=== PATIENT | female | born 1950 | race Caucasian/White ===

== ENCOUNTER → 2017-09-01 | Outpatient (CLI) | payer MEDICARE, BC ==
--- NOTE | 2017-09-01 11:37 | REPMRS ---
Patient History The patient states she had a clinical breast exam in 08/2017. Patient is postmenopausal. Family history of breast cancer in mother at age 50 or over. Benign excisional biopsy of the right breast. Benign stereotatic breast biopsy of the left breast. Took hormonal contraceptives for 6 months. Digital Woman Screen Mammo: September 01, 2017 - Exam #: [id number] Bilateral CC and MLO view(s) were taken. Technologist: Gita Dang, Technologist Prior study comparison: July 15, 2016, digital woman screen mammo performed at [facility] [employer] [facility]. October 31, 2014, digital woman screen mammo performed at [facility] [employer]. FINDINGS: There are scattered fibroglandular densities. There has been no change in the appearance of the mammogram from the prior studies. There is a mild amount of residual fibroglandular tissue which is fairly symmetric. There is no interval development of dominant mass, architectural distortion, or clustered microcalcification suggestive of malignancy. ASSESSMENT: BI-RADS/ACR category 1 mammogram. Negative. Recommendation Routine screening mammogram in 1 year (for women over age 40). This mammogram was interpreted with the aid of an FDA-approved computer-aided dectection system. Electronically Signed By: Rohit Cowart MD 09/01/17 [id number]
== END ==
LOC: M WHC 10:06
PROVIDERS: ATTEND Nurse Practitioner Women's Health
DX: Z01.419 Encounter for gynecological examination (general) (routine) without abnormal findings (principal); Z12.31 Encounter for screening mammogram for malignant neoplasm of breast; Z78.0 Asymptomatic menopausal state; Z12.12 Encounter for screening for malignant neoplasm of rectum; Z80.3 Family history of malignant neoplasm of breast; Z92.89 Personal history of other medical treatment; Z92.0 Personal history of contraception
CPT/HCPCS: 82270; G0101; G0202

== ENCOUNTER → 2018-09-08 | Outpatient (CLI) | payer MEDICARE, BC | LOC: M WHC 10:37 | DX: Z01.419 Encounter for gynecological examination (general) (routine) without abnormal findings (principal); Z12.31 Encounter for screening mammogram for malignant neoplasm of breast (principal); Z80.3 Family history of malignant neoplasm of breast; Z98.890 Other specified postprocedural states; Z92.29 Personal history of other drug therapy | CPT/HCPCS: 77067 ==

== ENCOUNTER → 2019-09-09 | Outpatient (CLI) | payer MEDICARE, BC ==
--- NOTE | 2019-09-09 11:27 | REPMRS ---
Patient History The patient states she has not had a clinical breast exam in over a year. Family history of breast cancer at age 87 in mother. Benign excisional biopsy of the right breast. Benign stereotatic breast biopsy of the left breast. Took hormonal contraceptives for 6 months. 3D TOMOSYNTHESIS WAS PERFORMED. [facility] lifetime risk for breast cancer is 8.4%. Digital Woman Screen Mammo: September 09, 2019 - Exam #: [id number] Bilateral CC and MLO view(s) were taken. Technologist: Samanta Danielson, Technologist Prior study comparison: September 08, 2018, bilateral digital woman screen mammo performed at [facility]. September 01, 2017, digital woman screen mammo performed at [facility]. FINDINGS: The breast tissue is heterogeneously dense. This may lower the sensitivity of mammography. There has been no change in the appearance of the mammogram from the prior studies. There is a moderate amount of residual fibroglandular tissue which is fairly symmetric. There is no interval development of dominant mass, areas of architectural distortion, or clustered microcalcification typical of malignancy. Assessment: BI-RADS/ACR category 1 mammogram. Negative Mammogram. Recommendation Routine screening mammogram in 1 year (for women over age 40). This mammogram was interpreted with the aid of an FDA-approved computer-aided dectection system. Electronically Signed By: Rohit Cowart MD 09/09/19 [id number]
== END ==
LOC: M WHC 10:25
PROVIDERS: ATTEND Nurse Practitioner Women's Health
DX: Z12.31 Encounter for screening mammogram for malignant neoplasm of breast (principal)

== ENCOUNTER → 2020-09-18 | Outpatient (CLI) | payer MEDICARE, BC ==
--- NOTE | 2020-09-18 12:21 | REPMRS ---
Patient History The patient states she had a clinical breast exam in 09/2020 Family history of breast cancer at age 87 in mother. Benign excisional biopsy of the right breast. Benign stereotatic breast biopsy of the left breast. Took hormonal contraceptives for 6 months. Digital Woman Screen Mammo: September 18, 2020 - Exam #: [id number] Bilateral CC and MLO view(s) were taken. Technologist: Samanta Danielson, Technologist Prior study comparison: September 09, 2019, bilateral digital woman screen mammo performed at [facility]. September 08, 2018, bilateral digital woman screen mammo performed at [facility]. September 01, 2017, digital woman screen mammo performed at [facility]. FINDINGS: There are scattered fibroglandular densities. The Volpara volumetric breast density category is:B. There are 2 needle biopsy marker clips in the left breast. There has been no change in the appearance of the mammogram from the prior studies. There is a mild amount of scattered fibroglandular density which is fairly symmetric. There is no interval development of dominant mass, architectural distortion, or grouped microcalcification suggestive of malignancy. 3-D tomosynthesis shows no additional findings. Assessment: BI-RADS/ACR category 2 mammogram. Benign Findings. Recommendation Routine screening mammogram of both breasts in 1 year (for women over age 40). This patient's Lifetime Breast Cancer Risk is estimated at 8.0 %. This mammogram was interpreted with the aid of an FDA-approved computer-aided dectection system. Electronically Signed By: Dragan Gray MD 09/18/20 [id number]
--- NOTE | 2020-09-18 13:44 | DEXA ---
INDICATION: M85.80 OSTEOPENIA AFTER MENOPAUSE. COMPARISON: September 03, 2017, July 17, 2010, and June 30, 2008.. TECHNIQUE: Bone density was measured using dual-energy x-ray absorptionmetry (DEXA). FINDINGS: AP SPINE L1-L4 BMD 1.106 g/cm2 Young Adult T-Score -0.6 Age Matched Z-Score 1.0. LT FEMUR, TOTAL BMD 0.716 g/cm2 Young Adult T-Score -2.3 Age Matched Z-Score -0.9. LT NECK BMD 0.759 g/cm2 Young Adult T-Score -2.0 Age Matched Z-Score -0.4. RT FEMUR, TOTAL BMD 0.765 g/cm2 Young Adult T-Score -1.9 Age Matched Z-Score -0.5. RT NECK BMD 0.772 g/cm2 Young Adult T-Score -1.9 Age Matched Z-Score -0.3. IMPRESSION: There is normal bone density of the spine. There is low bone density of the left hip. There is low bone density of the right hip. The density of the spine has decreased 11.0% since the initial exam on January 23, 2004. The density of the spine increased 0.5% since most recent exam on September 03, 2017. The density of the left hip has decreased 13.7% since initial exam on January 23, 2004. The density of the left hip has decreased 4.7% since most recent exam on September 03, 2017. The density of the right hip has decreased 9.5% since the initial exam on January 23, 2004. The density of the right hip has decreased 1.7% since the most recent exam on September 03, 2017. FOLLOW-UP: Recommendation for the next bone density exam: 2 years. <Electronically signed by Dragan Gray > 09/18/20 [id number]
== END ==
LOC: M WHC 10:47
PROVIDERS: ATTEND Nurse Practitioner Women's Health
DX: Z01.419 Encounter for gynecological examination (general) (routine) without abnormal findings (principal); Z12.31 Encounter for screening mammogram for malignant neoplasm of breast; Z78.0 Asymptomatic menopausal state; M85.80 Other specified disorders of bone density and structure, unspecified site; Z80.3 Family history of malignant neoplasm of breast; Z86.018 Personal history of other benign neoplasm; Z92.0 Personal history of contraception
CPT/HCPCS: 77063; 77067; 77080; G0101

== ENCOUNTER → 2021-10-23 | Outpatient (CLI) | payer MEDICARE, BC ==
--- NOTE | 2021-10-23 15:11 | REPMRS ---
Patient History The patient states she has not had a clinical breast exam in over a year. Patient is postmenopausal. Family history of breast cancer at age 87 in mother. Benign excisional biopsy of the right breast. Benign stereotatic breast biopsy of the left breast. Took hormonal contraceptives for 6 months. Moderna vaccine 12/14/20 left arm. 01/14/21 left arm. 09/15/21 left arm. Patient states no breast complaints today. Patient has signed MRS History Sheet. Digital Woman Screen Mammo: October 23, 2021 - Exam #: [id number] Bilateral CC and MLO view(s) were taken. Technologist: RT Asa Prior study comparison: September 18, 2020, bilateral digital woman screen mammo performed at [facility]. September 09, 2019, bilateral digital woman screen mammo performed at [facility]. FINDINGS: There are scattered fibroglandular densities. Screening. Digital screening (2D) mammography was performed bilaterally in the CC and MLO projections. Additionally, breast tomosynthesis (3D mammography) was performed bilaterally in the CC and MLO projections. Todays exam was compared to the prior exam/exams. By history, the patient has no complaints of a palpable breast abnormality or other significant breast complaints. The breasts are unchanged in size and shape. There are no diana-soft tissue densities or spiculated masses. There is no internal architectural distortion. There are no suspicious diana-calcific clusters. Skin thickening or nipple retraction is not present. IMPRESSION: BI-RADS Category 2- Benign Findings. There is no evidence of malignant alteration of the breasts. Followup examination recommended in one year. The Volpara volumetric breast density category is B, there are scattered areas of fibroglandular densities. This mammogram was read with the assistance of [employer],an FDA approved computer aided detection system for mammography. The lifetime Tyrer-Cuzick score is 7.5 % Negative x-ray reports should not delay surgical consultation if a dominant or clinically suspicious mass is present. Not all breast cancers can be identified by mammography. Therefore, we recommend that you continue to perform regular breast self-examination and physical examination and then promptly contact your physician of any concerns or changes. Adenosis and dense breasts may obscure an underlying neoplasm. Assessment: BI-RADS/ACR category 2 mammogram. Benign Findings. Recommendation Routine screening mammogram of both breasts in 1 year. Electronically Signed By: Samuel Chen DO 10/23/21 [id number]
== END ==
LOC: M WHC 13:06
PROVIDERS: ATTEND Nurse Practitioner Women's Health
DX: Z12.31 Encounter for screening mammogram for malignant neoplasm of breast (principal); Z78.0 Asymptomatic menopausal state; Z80.3 Family history of malignant neoplasm of breast

== ENCOUNTER → 2022-05-19 | Outpatient (CLI) | payer MEDICARE, BC, OTHER ==
[~2022-05-19] MED LIST: ERGO500029 PO; LISI10TA22 PO
== END ==
LOC: M LABSMTC 09:46
PROVIDERS: ATTEND Anesthesiology
DX: Z20.828 Contact with and (suspected) exposure to other viral communicable diseases (principal); Z11.59 Encounter for screening for other viral diseases

== ENCOUNTER 2022-05-22 10:40 | Day surgery (SDC) | payer MEDICARE, BC, OTHER ==
[~2022-05-22] VITALS: Ht 170.2 cm; Wt 73.0 kg
[~2022-05-22 10:40] MED LIST changes: +NS 1,000 ML IV ONE
[2022-05-22 13:15] VITALS: BP 150/72
== END 2022-05-22 13:20 | disposition home or self-care (01) ==
LOC: M OPP 10:40
PROVIDERS: ATTEND Surgery
DX: Z12.11 Encounter for screening for malignant neoplasm of colon (principal); Z80.0 Family history of malignant neoplasm of digestive organs; D12.2 Benign neoplasm of ascending colon; K57.30 Diverticulosis of large intestine without perforation or abscess without bleeding; I10 Essential (primary) hypertension; Z79.51 Long term (current) use of inhaled steroids; Z79.899 Other long term (current) drug therapy; Z80.1 Family history of malignant neoplasm of trachea, bronchus and lung

== ENCOUNTER → 2022-11-07 | Outpatient (CLI) | payer MEDICARE, BC, OTHER ==
[~2022-11-07] MED LIST changes: -NS 1,000 ML IV ONE
== END ==
LOC: M WHC 08:38
PROVIDERS: ATTEND Family Medicine
DX: Z12.31 Encounter for screening mammogram for malignant neoplasm of breast (principal); Z13.220 Encounter for screening for lipoid disorders; M85.89 Other specified disorders of bone density and structure, multiple sites

== ENCOUNTER → 2022-11-25 | Outpatient (CLI) | payer MEDICARE, BC, OTHER | LOC: M WHC 08:28 | PROVIDERS: ATTEND Family Medicine | DX: R92.8 Other abnormal and inconclusive findings on diagnostic imaging of breast (principal); N63.10 Unspecified lump in the right breast, unspecified quadrant | CPT/HCPCS: 77065; G0279 ==

== ENCOUNTER → 2023-11-27 | Outpatient (CLI) | payer MEDICARE, BC, OTHER | LOC: M WHC 08:47 | PROVIDERS: ATTEND Family Medicine | DX: Z12.31 Encounter for screening mammogram for malignant neoplasm of breast (principal) ==

== ENCOUNTER → 2024-12-09 | Outpatient (CLI) | payer MEDICARE, BC | LOC: M WHC 10:27 | PROVIDERS: ATTEND Family Medicine | DX: Z12.31 Encounter for screening mammogram for malignant neoplasm of breast (principal); Z13.820 Encounter for screening for osteoporosis; M85.89 Other specified disorders of bone density and structure, multiple sites; R92.323 Mammographic fibroglandular density, bilateral breasts ==